=== PATIENT | female | born 1975 | race Native Hawaiian/Other Pacific Islander ===

== ENCOUNTER 2016-04-29 05:49 | Emergency (ER) | payer OTHER ==
[~2016-04-29] VITALS: Ht 177.8 cm; Wt 74.8 kg
[2016-04-29 06:33] LABS: POTASSIUM 3.7 mmol/L (3.6-5.2); SODIUM 136 mmol/L (136-145)
[2016-04-29 06:34] LABS: PLATELET COUNT 268 K/uL (152-353)
[2016-04-29 08:59] VITALS: BP 166/95; TEMP 98.1
== END 2016-04-29 08:59 | disposition home or self-care (01) ==
LOC: ED 05:49
PROVIDERS: Emergency Medicine
DX: R00.0 Tachycardia, unspecified (principal); R07.89 Other chest pain; R55 Syncope and collapse
CPT/HCPCS: 36415; 80053; 80307; 81000; 82550; 84443; 84484; 85027; 85379; 85610; 85730; 96360; 96361; 99284; G0479

== ENCOUNTER 2016-08-08 14:40 | Outpatient (CLI) | payer OTHER | END 2016-08-08 19:51 | disposition home or self-care (01) | LOC: RAD 14:40 | DX: M25.562 Pain in left knee (principal) ==

== ENCOUNTER 2016-09-16 10:28 | Outpatient (CLI) | payer OTHER | END 2016-09-16 11:30 | disposition home or self-care (01) | LOC: MRI 10:28 | DX: M25.562 Pain in left knee (principal) ==

== ENCOUNTER 2016-12-10 11:52 | Outpatient (CLI) | payer OTHER ==
[2016-12-10 13:58] LABS: PLATELET COUNT 301 K/uL (152-353)
[2016-12-10 14:17] LABS: POTASSIUM 3.4 mmol/L (3.6-5.2); SODIUM 138 mmol/L (136-145)
== END 2016-12-10 19:12 | disposition home or self-care (01) ==
LOC: LABW 11:52
PROVIDERS: Family Medicine
DX: M25.462 Effusion, left knee (principal); R53.83 Other fatigue; E55.9 Vitamin D deficiency, unspecified
CPT/HCPCS: 36415; 80053; 80061; 82306; 82607; 83001; 83002; 84146; 84403; 84443; 85027; 85651; 86039; 86140; 86431; 86706

== ENCOUNTER 2017-08-05 09:32 | Emergency (ER) | payer OTHER ==
[~2017-08-05] VITALS: Ht 177.8 cm; Wt 74.8 kg
[2017-08-05 09:40] VITALS: TEMP 98.1
[2017-08-05 10:31] LABS: PLATELET COUNT 248 K/uL (152-353)
[2017-08-05 10:37] LABS: POTASSIUM 3.5 mmol/L (3.6-5.2)
[2017-08-05 12:14] VITALS: BP 126/67
== END 2017-08-05 12:05 | disposition home or self-care (01) ==
LOC: ED 09:32
DX: N39.0 Urinary tract infection, site not specified (principal); N30.90 Cystitis, unspecified without hematuria; N20.0 Calculus of kidney
CPT/HCPCS: 36415; 80053; 81000; 85027; 87086; 87088; 96360; 96365; 96375; 99284; J0696; J1170; J1885; J2405; J2550

== ENCOUNTER 2018-01-30 13:39 | Emergency (ER) | payer OTHER ==
[~2018-01-30] VITALS: Ht 177.8 cm; Wt 72.6 kg
[2018-01-30 14:26] LABS: PLATELET COUNT 244 K/uL (152-353)
[2018-01-30 14:30] LABS: POTASSIUM 3.8 mmol/L (3.6-5.2)
[2018-01-30 15:40] VITALS: BP 140/80; TEMP 98
== END 2018-01-30 15:40 | disposition home or self-care (01) ==
LOC: ED 13:39
DX: S10.93XA Contusion of unspecified part of neck, initial encounter (principal); S20.222A Contusion of left back wall of thorax, initial encounter; S20.221A Contusion of right back wall of thorax, initial encounter; S30.0XXA Contusion of lower back and pelvis, initial encounter; V59.9XXA Occupant (driver) (passenger) of pick-up truck or van injured in unspecified traffic accident, initial encounter
CPT/HCPCS: 80053; 81000; 85027; 99283

== ENCOUNTER 2018-02-02 15:39 | Outpatient (CLI) | payer OTHER | END 2018-02-02 19:55 | disposition home or self-care (01) | LOC: CT 15:39 | DX: S06.0X0D Concussion without loss of consciousness, subsequent encounter (principal) ==

== ENCOUNTER 2018-02-12 12:16 | Outpatient (CLI) | payer OTHER | END 2018-02-12 19:42 | disposition home or self-care (01) | LOC: MRI 12:16 | DX: S14.2XXA Injury of nerve root of cervical spine, initial encounter (principal) ==

== ENCOUNTER 2018-02-19 11:44 | Outpatient (CLI) | payer OTHER | END 2018-02-19 23:40 | disposition home or self-care (01) | LOC: MRI 11:44 | DX: Q07.00 Arnold-Chiari syndrome without spina bifida or hydrocephalus (principal) | CPT/HCPCS: A9576 ==

== ENCOUNTER 2018-12-03 14:09 | Emergency (ER) | payer OTHER ==
[~2018-12-03] VITALS: Ht 177.8 cm; Wt 70.3 kg
[2018-12-03 14:12] VITALS: BP 152/88; TEMP 97.7
== END 2018-12-03 15:47 | disposition home or self-care (01) ==
LOC: ED 14:09
DX: M25.562 Pain in left knee (principal); G89.29 Other chronic pain
CPT/HCPCS: 99282

== ENCOUNTER 2018-12-04 10:00 | Outpatient (CLI) | payer OTHER ==
[2018-12-04 10:26] LABS: PLATELET COUNT 298 K/uL (152-353)
[2018-12-04 10:36] LABS: POTASSIUM 3.8 mmol/L (3.6-5.2)
== END 2018-12-04 19:20 | disposition home or self-care (01) ==
LOC: LABW 10:00
PROVIDERS: Nurse Practitioner Family
DX: L93.0 Discoid lupus erythematosus (principal); M25.462 Effusion, left knee; R25.2 Cramp and spasm
CPT/HCPCS: 36415; 80053; 82550; 83735; 84550; 85027; 85651; 86038; 86140; 86430

== ENCOUNTER 2018-12-10 08:12 | Outpatient (CLI) | payer OTHER | END 2018-12-10 19:44 | disposition home or self-care (01) | LOC: MRI 08:12 | DX: M25.462 Effusion, left knee (principal) ==

== ENCOUNTER 2019-11-18 12:35 | Observation (INO) | payer OTHER ==
[~2019-11-18] VITALS: Ht 177.8 cm; Wt 80.5 kg
--- NOTE | 2019-11-18 17:43 | NUR ---
PT TO FLOOR FROM ED VIA STRETCHER ON NRB @ 15LPM, 100%. PT A/O X 3, C/O SHARP PAIN ON INSPIRATION IN RT CHEST. PT REQUESTED ATIVAN TO HELP CALM HER. 22G IN RT HAND STARTED BY ER. PT HAD CELL PHONE. HOME MED LIST UNAVAILABLE- PT VERBALIZED THAT SPOUSE WAS TO BRING LIST TO HOSPITAL. PT ORIENTED TO SURROUNDINGS AND INSTRUCTED HOW TO USE CALL LIGHT. BED LOW, LOCKED, SR UP X2, CALL LIGHT IN EASY REACH.
[2019-11-18 18:19] VITALS: BP 132/92; TEMP 97.9; Ht 177.8 cm; Wt 80.5 kg
[2019-11-18 18:35] LABS: PLATELET COUNT 185 K/uL (152-353)
[2019-11-18 18:48] LABS: POTASSIUM 3.6 mmol/L (3.6-5.2); SODIUM 140 mmol/L (136-145)
[2019-11-18 20:00] VITALS: BP 134/86; TEMP 97.6
--- NOTE | 2019-11-18 22:30 | NUR ---
PT BECAME UPSET DUE TO RECORDS FROM ANOTHER HOSPITAL NOT BEING HERE AT THIS TIME, PT INSISTING ON HAVING A COPY TO READ, UMABLE TO EXPLAIN OR SATISFY PT,WILL NOTIFY YUMIKO NURSE.
[2019-11-19] VITALS: BP 139/78; TEMP 97.5
--- NOTE | 2019-11-19 00:35 | NUR ---
PT INSISTING ON MELATONIN ,WHICH IS UNAVALABLE AT THIS TIME,PT BECOMES AGITATED, STATES THAT SHE GAVE THE MELATONIN TO STAFF NURSE, TRIED TO EXPLAIN THAT THERE WAS NO MELATONIN IN WITH HER HOME MEDS. PT STATED THAT SHE DIDN'T WANT ANY HELP FROM ANY OF US HERE AT THIS HOSPITAL, SHE DIDN'T WANT ANY OF US TO DO ANY OF US TO DO ANYTHING FOR HER, SHE THEN REFUSED HER INHALER.
--- NOTE | 2019-11-19 01:30 | NUR ---
PT CALLED NUSES BACK TO ROOM AND STATED YA'LL HAVEN'T DONE ANYTHING FOR ME FOR TWO HOURS, NURSE ASKED PT WHAT SHE WANTED, PT STATED SHE WANTED FLEXERILL, DR FELIZ CALLED AND ORDER RECEIVED FOR FLEXERILL,ORDER NOTED AND MED GIVEN AT THIS TIME.
--- NOTE | 2019-11-19 04:30 | NUR ---
PT REFUSED TORADOL AT THHIS TIME
[2019-11-19] MEDS ORDERED: PROMETHAZINE HY25 MG PO (06:56)
[2019-11-19] MEDS ORDERED: TRAMADOL HYDROC50 MG PO (06:59)
[2019-11-19] MEDS ORDERED: ADDERALL30 MG PO (07:01)
[2019-11-19] MEDS ORDERED: FIORICET/CODEIN1 CAP PO (07:11)
[2019-11-19] MEDS ORDERED: ZINC SULFATE220 M2 PO (07:12)
[2019-11-19] MEDS ORDERED: SUMATRIPTAN50 MG PO (07:14)
[2019-11-19] MEDS ORDERED: ELIQUIS5 MG PO (07:15)
[2019-11-19] MEDS ORDERED: MAXALT10 MG PO (07:24)
[2019-11-19] MEDS ORDERED: METHYLPRED4 M1 PO (07:27)
--- NOTE | 2019-11-19 07:51 | NUR ---
PATIENT AT 0035 11/19/2019 ASLED FOR A COPY OF ALL HER MEDICAL RECORDS AND DEMANDED MELATONIN FOR SLEEP. I TOLD HER I WOULD CALL HER DR, DR FELIZ AND ALSO CALL MY NURSE SEEING EYE DOG TEACHER INQUIRING ABOUT HER CHART SHE REQUESTED. I CALL NIKI MY SEEING EYE DOG TEACHER AND WAS TOLD SHE CANNOT HAVE HER CURRENT MEDICAL RECORD WHILE BEING TREATED, AND DR FELIZ ORDER MELATONON BUT OUR PHARMACY DOESNT CARRY IT. I EXPLAINED THIS TO HER SEVERAL TIMES AND I ALSO EXPLAINED THAT WE WERE DOING OUR BEST TO CARE FOR HER. SHE THEN SAID, "IF YOU WONT GIVE ME MY MEDICATION I DONT WANT ANY FUTHER CARE." AND SHE REFUSED HER INHAILER AND FOR US TO LISTEN TO HER BREATH SOUNDS. WE CONTINUED TO MONITOR, AT 0130 THE PATIENT CALLED AGAIN AND COMPLAINED ABOUT NOT BEING ABLE TO SLEEP AND NOT BEING "CARED FOR" I ASKED HER IF SHE HAD ANY OTHER MEDICATION SHE USED TO SLEEP AND SHE SAID FLEXERIL 4MG. I AGAIN CALLED DR FELIZ AND SHE AGREED TO THE FLEXERIL. THE PATIENT ALSO REFUSED TO SIGN HER CONSENT TO RESTART THE REMDESIVIR DR SALCEDO ASKED. AT 0400 THE PATIENT REFUSED VITALS AND DAILY WEIGHTS, AND SCHEDULED TORADOL. THE PATIENT THEN REQUESTED A LIST OF ALL THE MEDICAIONS SHE HAD BEEN GIVEN AND PROVIDER HER WIT THAT INFORMATION.
[2019-11-19 08:00] VITALS: BP 134/72; TEMP 97.8
--- NOTE | 2019-11-19 11:00 | NUR ---
SPOKE WITH PATIENT IN LENGTH REGARDING REQUESTS FOR MEDICAL RECORDS. PT WAS INFORMED THAT SHE CAN VIEW HER MEDICAL RECORDS AT ANYTIME DURING HER STAY. PT STATED THAT SHE DID NOT WANT TO SEE HER RECORDS FROM CURRENT VISIT, ONLY WANTED TO VIEW RECORDS FROM [facility] IN ORDER TO KNOW WHAT TREATMENT HAD BEEN GIVEN TO PASS THAT INFORMATION ALONG TO OUR STAFF. PT WAS ASKED IF SHE HAD REFUSED TO SIGN CONSENT FOR REMDESIVIR, SHE STATED THAT SHE JUST DIDNT KNOW HOW MANY DOSES SHE HAD RECIEVED AT OTHER FACILITY. PT STATED THAT SHE HAD GIVEN ALL OF HER MEDS TO NIGHT NURSE AND WANTED HER MELATONIN TO SLEEP AND THE NURSE STATED THAT WE DID NOT CARRY THAT IN THE FACILTIY. PT STATED THAT MELATONIN WAS A HOME MED THAT WAS IN HER BAG OF MEDS AND THE NURSE HAD THAT MED. PT WAS INSTURCTED TO CALL WITH ANY CONCERNS OR NEEDS.
[2019-11-19 12:00] VITALS: BP 134/72; TEMP 97.8
--- NOTE | 2019-11-19 12:15 | NUR ---
JAYMIE MERCEDES HERE TO [employer] PT'S HOME MEDICATIONS. SPOKE WITH JAYMIE ABOUT PT'S MELATONIN. JAYMIE STATES "I THOUGHT HE WROTE AN ORDER FOR THE MELATONIN BUT HE MAY NOT HAVE, IT'S BEEN A CRAZY COUPLE OF DAYS, I CAN BRING HER SOME IF SHE NEEDS IT." INFORMED JAYMIE I WOULD CHECK WITH DR. FELIZ TO SEE IF SHE WANTS TO DO THE MELATONIN.
[2019-11-19 12:34] LABS: PLATELET COUNT 148 K/uL (152-353)
[2019-11-19 12:52] LABS: POTASSIUM 3.7 mmol/L (3.6-5.2)
--- NOTE | 2019-11-19 13:06 | NUR ---
Patient is allergic to Vitamin C and Iodine, COVID and pneumonia, is 5"10" at 177.4 lbs. and BMI = 25.39 and is overweight and is 118% of IBW and is a 44YOF and labs that are eleavted are Cl, ABG, gl 131, ast, lactic acid, ferritin, and is receiving Vitamin C and ZNSO4, need to d/c Vitamin C. Left calf pain, DVT, Migraine FRANCISCO abd is on a Regular diet plan please add allergic to Iodine. Labs depressed are WBC, platelet count, alk po4, alb 3.2, PCO2, so monitor labs and IBW for height at 5'10" = 166+/-10% (149 to 183 lbs.) and kcal needs x 25 to 30 = 1800 to 2300, x 35 to 40 = 2600 to 3000, pro x .8 to 1.5 = 60 to 113 grams a day and fluids x 25 to 30 = 1800 to 2300 ml/cc per day. RD Recommendations: 1-Make sure not on Vitamin C and if on a MVI make sure no Vitamin C is in the MVI- D/C Vitamin C since allergic to. 2-Make sure FS is notify of no Iodine and so note on the diet card. 3-Moniotr all Labs 4-If eating <75% of meals add a Supplement with meals RD available as needed.
[2019-11-19 19:45] VITALS: BP 128/72; TEMP 97.8
[2019-11-20 00:28] VITALS: BP 133/71; TEMP 97.8
[2019-11-20 04:00] VITALS: BP 122/76; TEMP 98.4
[2019-11-20 05:20] LABS: PLATELET COUNT 142 K/uL (152-353)
[2019-11-20 08:00] VITALS: BP 123/75; TEMP 98.5
--- NOTE | 2019-11-20 09:11 | NUR ---
ROUNDED ON PATIENT THIS MORNING SHE IS RESTING QUIETLY AND QUICKLY AWAKENS WHEN CALLING HER NAME TO COMPLETE ASSESSMENT. PATIENT HAD NO COMPLAINS LAST NIGHT DID STATE EARLIER WHEN SHE SNEEZED SHE FELT SOME PAIN IN THE RLQ " KIND OF LIKE PLEURISY". DENIES N/V/D. PATIENT LAST KNOWN BOWEL MOVEMENT 11/18/19. PATIENT SALINE LOCKED TO GO TO THE BATHROOM THIS MORNING. PATIENT ALSO NOTIFIED THAT WE WOULD BE WALKING EARLIER TO SEE HOW SHE DOES TODAY. PATIENT WILL BE GOING HOME PER . NO ACUTE DISTRESS NOTED. IV 22G TO THE LFA INTACT WITH NO S/S INFILTRATION NOTED. PATIENT ALSO IS NOT WEARING HER O2 AND HER CURRENT SPO2 IS 100% ON RA.
[2019-11-20 12:00] VITALS: BP 134/75; TEMP 98.5
[2019-11-20 16:00] VITALS: BP 125/79; TEMP 98.5
--- NOTE | 2019-11-20 17:27 | NUR ---
HERE TO SEE PATIENT. DISCHARGE ORDER PLACED AT THIS TIME. IV 22G REMOVED FROM THE RIGHT FOREARM WITH TIP INTACT. PATIENT GIVEN DISCHARGE INSTRUCTIONS WITH VERBAL UNDERSTANDING NOTED. PATIENT GIVEN RX. PATIENT INFORMED ME IF I COULD CALL AND ASK IF SHE WOULD CALL SOME ZANAFLEX TO [facility], STATED WAS GOING TO RX TO HER ZANAFLEX. CALLED REGARDING MEDS, NO ANSWER WILL CALL HER BACK AGAIN. PATIENT LEFT AMBULATORY AND IN NO ACUTE DISTRESS.
== END 2019-11-20 17:27 | disposition home or self-care (01) ==
LOC: MED/SURG 12:35
PROVIDERS: ADMIT Family Medicine
DX: U07.1 COVID-19 (principal); J18.8 Other pneumonia, unspecified organism; R07.89 Other chest pain
CPT/HCPCS: 36415; 36600; 80053; 82550; 82728; 82805; 83605; 83735; 84100; 84443; 84484; 85027; 85379; 86140; 87040; 94668; 94760; 99220; G0378; G0379; J0456; J1650; J1885; J2060